=== PATIENT | male | born 1975 | race Caucasian/White ===

== ENCOUNTER 2024-11-27 14:18 | Emergency (ER) | payer BC ==
[2024-11-27] MEDS ORDERED: Lidocaine 1% w/Epinephrine 1:100K 20 ML VIAL ONE (17:23)
[2024-11-27] MEDS ORDERED: Ketorolac Tromethamine 30 MG (1 mL) VIAL ONE (17:54)
== END 2024-11-27 18:48 | disposition home or self-care (01) ==
LOC: ERS 14:18
DX: L02.31 Cutaneous abscess of buttock (principal); I10 Essential (primary) hypertension; F17.290 Nicotine dependence, other tobacco product, uncomplicated; Z79.899 Other long term (current) drug therapy
CPT/HCPCS: 10060; 96372; J1885; J2270